=== PATIENT | female | born 1975 | race African-American/Black ===

== ENCOUNTER 2018-09-23 20:06 | Emergency (ER) | payer OTHER ==
[~2018-09-23] VITALS: Ht 160 cm; Wt 63.0 kg
[2018-09-23 20:15] VITALS: Ht 160 cm; Wt 63.0 kg
[2018-09-23 22:41] VITALS: BP 139/85
== END 2018-09-23 22:41 | disposition left against medical advice (07) ==
LOC: ED 20:06
DX: O26.893 Other specified pregnancy related conditions, third trimester (principal); R10.9 Unspecified abdominal pain; Z3A.38 38 weeks gestation of pregnancy
CPT/HCPCS: Q0092